=== PATIENT | female | born 1990 | race Caucasian/White ===

== ENCOUNTER 2025-01-21 21:51 | Emergency (ER) | payer OTHER ==
[~2025-01-21] VITALS: Ht 160 cm; Wt 60.8 kg
[2025-01-21] MEDS ORDERED: SILVER NITRATE APPLICATOR 1 EA BOX TP ONE (22:30)
[2025-01-21] MEDS ORDERED: SILVER SULFADIAZINE CREAM 25 GM TUBE ONE (22:39)
[2025-01-21] MEDS ORDERED: SILV50CR32 TP (22:40)
[2025-01-21] MEDS: SILVER SULFADIAZINE CREAM 25 GM TUBE TP ONE (22:43)
[2025-01-21 22:58] VITALS: BP 127/77; TEMP 98.1; O2SAT 95
== END 2025-01-21 22:59 | disposition home or self-care (01) ==
LOC: ER 22:00
DX: T22.211A Burn of second degree of right forearm, initial encounter (principal); T22.212A Burn of second degree of left forearm, initial encounter; X08.8XXA Exposure to other specified smoke, fire and flames, initial encounter; Y93.89 Activity, other specified; Y92.89 Other specified places as the place of occurrence of the external cause; Y99.8 Other external cause status